=== PATIENT | male | born 1950 | race Caucasian/White ===

== ENCOUNTER → 2023-10-14 06:32 | Day surgery (SDC) | payer OTHER, SELFPAY ==
[2023-10-14 08:34] LABS: Glucose - Point of Care 122 mg/dl (70-99)
== END ==
LOC: GI 06:32
PROVIDERS: ATTENDING PHYSICIAN Specialist
DX: Z12.11 Encounter for screening for malignant neoplasm of colon (principal); D12.5 Benign neoplasm of sigmoid colon; Z86.010 Personal history of colon polyps
CPT/HCPCS: 45385; 88305; 82962

== ENCOUNTER → 2024-05-18 13:44 | Outpatient (REF) | payer OTHER, SELFPAY | LOC: HWRAD 13:44 | PROVIDERS: ATTENDING PHYSICIAN Specialist; FAMILY PHYSICIAN Family Medicine | DX: N18.4 Chronic kidney disease, stage 4 (severe) (principal); R80.1 Persistent proteinuria, unspecified; E11.9 Type 2 diabetes mellitus without complications; N25.81 Secondary hyperparathyroidism of renal origin | CPT/HCPCS: 76770 ==

== ENCOUNTER 2024-08-21 13:17 | Emergency (ER) | payer OTHER, SELFPAY ==
[2024-08-21 13:21] VITALS: BP 180/78
[2024-08-21] MEDS: NORCO 5/325 1 TABLET PO (14:20)
[2024-08-21] MEDS: MORPHINE SULFATE 4 MG IM (15:39)
--- NOTE | 2024-08-21 17:02 | ED.GENMED ---
History of Present Illness
General
Chief Complaint: Musculo-Skeletal Complaint
Time Seen by Provider: 08/21/24 13:43
History of Present Illness
History of Present Illness:
74-year-old male presents for evaluation of left knee pain after a mechanical fall, states he tripped over a shop vac hose. Did not strike his head. He has not been able to bear weight due to pain
Past History
Past History
ED Past Medical History: CAD, Cancer (Colon CA., Skin cancer), HTN, Hypercholesterolemia, IDDM, [place] and Other (Lymphoma, Gout, Hiatel hernia, Esophageal tear, Kidney stone)
ED Past Surgical History: Bowel resection (for diverticulitis with Colostomy and then reversal 2006) and Cardiac (Stent)
Social History
Tobacco: Non-smoker
Alcohol: None
Drug: None
Personal:
Living: with family
Employment: Employed
Family History
Family History: Diabetes
Review of Systems
Review of Systems
Allergies reviewed?: Yes
All Other Systems: ROS reviewed and negative except as documented in HPI and ROS
Phy Exam
Physical Exam
Physical Exam:
GEN: Well appearing, NAD, WDWN
HEENT: Oral mucosa moist, no scleral icterus
Cardiac: Regular rate
Lung: No respiratory distress, no tachypnea
MSK: Diffuse swelling to the anterior left knee, no open wounds, range of motion limited by pain however fully intact when patient able to tolerate pain
Skin: Good color, no pallor or jaundice, no rashes
Neuro: AO x3, moves all extremities freely
Psych: Calm, cooperative
Course
Orders/Labs/Results
Orders:
Orders
08/21/24 13:24
CR Knee - Left 4 Or More View* Urgent
Comment:
Reason For Exam: fall, pain
08/21/24 14:14
Hydrocodone 5/APAP 325 [[place] 5/325] 1 tablet PO NOW STA
08/21/24 15:16
Morphine Sulfate 4 mg IM NOW STA
Vital Signs
Initial and Last Documented VS:
Initial Vital Signs
Temp Pulse Resp BP Pulse Ox
97.9 F 61 18 180/78 98
08/21/24 13:21 08/21/24 13:21 08/21/24 13:21 08/21/24 13:21 08/21/24 13:21
Last Documented Vital Signs
Temp Pulse Resp BP Pulse Ox
97.9 F 61 18 180/78 98
08/21/24 13:21 08/21/24 13:21 08/21/24 13:21 08/21/24 13:21 08/21/24 13:21
MDM/Problems Addressed
MDM/Problems Addressed:
X-rays unremarkable, given analgesics and ambulated, he is able to manage with support. Recommend outpatient orthopedic follow-up and supportive care discussed
*Critical Care Note
Total Time (30-74mins, 75-104mins- exclusive of procedures): Not Applicable
ED Attending Note
-
Portions of this chart may have been created with voice recognition software.� Occasional wrong word or��sound alike� substitutions may have occurred due to the inherent limitations of voice recognition software.
Discharge Plan
Departure
Patient Disposition: Home (Routine Discharge)
Date of Disposition: 08/21/24
Time of Disposition: 17:03
Patient with high blood pressure during this ER visit?: No
Discharge Problem:
Contusion of left knee
Instructions: Contusion (DC)
Prescriptions:
New
oxycodone 5 mg tablet
5 mg PO TID PRN (Reason: Pain) Qty: 12 0RF
No Action
sertraline 100 MG tablet
100 mg PO BID
aspirin 81 MG tablet,delayed release (DR/EC)
81 mg PO HS
pantoprazole 40 MG tablet,delayed release (DR/EC)
40 mg PO DAILY Qty: 30 11RF
insulin glargine [Lantus Solostar U-100 Insulin] 300 UNITS/3 ML insulin pen
20 units SC BID
colchicine 0.6 MG tablet
0.6 - 1.2 mg PO BIDPRN PRN (Reason: gout)
carvedilol 12.5 MG tablet
12.5 mg PO BID
pravastatin 40 MG tablet
80 mg PO DAILY
hydralazine 25 MG tablet
25 mg PO BID
allopurinol 100 mg Tablet
100 mg PO DAILY
furosemide 20 mg Tablet
20 mg PO DAILY
magnesium oxide 400 mg magnesium Capsule
400 mg PO .EVERYOTHERDAY
doxycycline hyclate 100 mg capsule
100 mg PO BID Qty: 28 0RF
Referrals:
Malik Franklin DO [Family Provider] -
Simba Gudino MD [Active] -
Interventions
Interventions:
*Risk Screen - Suicide Last Done: 08/21/24 13:21
*General Assessment Last Done: 08/21/24 13:21
*Neglect/Abuse Screening Last Done: 08/21/24 13:21
*ED COVID-19 Vaccine History Last Done: 08/21/24 13:21
*Nursing Disposition Last Done: 08/21/24 17:24
ED-Musculoskeletal Assessment Last Done: 08/21/24 13:42
Discharge Date and Time
Discharge Date/Time: 08/21/24 17:24
Print Language: DANISH
== END 2024-08-21 17:24 | disposition home or self-care (01) ==
LOC: EMR 13:17
PROVIDERS: EMERGENCY PHYSICIAN Emergency Medicine; FAMILY PHYSICIAN Family Medicine
DX: S80.02XA Contusion of left knee, initial encounter (principal); W18.09XA Striking against other object with subsequent fall, initial encounter; I25.10 Atherosclerotic heart disease of native coronary artery without angina pectoris; I10 Essential (primary) hypertension; E78.00 Pure hypercholesterolemia, unspecified; E11.9 Type 2 diabetes mellitus without complications; I25.2 Old myocardial infarction; Z85.038 Personal history of other malignant neoplasm of large intestine; Z85.828 Personal history of other malignant neoplasm of skin; Z79.4 Long term (current) use of insulin; Z95.5 Presence of coronary angioplasty implant and graft
CPT/HCPCS: 99284; 96372; 73564

== ENCOUNTER 2024-12-12 08:09 | Outpatient (REF) | payer OTHER, SELFPAY ==
[2024-12-12] VITALS (12 sets, daily range): BP systolic 55–181; BP diastolic 68–90
[2024-12-12 08:36] LABS: % Basophils 0.9 % (0-2); % Eosinophils 9.4 % (0-6); % Immature Granulocytes 0.3 % (0-0.5); % Monocytes 5.7 % (1.7-9.3); % Neutrophils 67.7 % (42.2-75.2); Absolute Basophils 0.1 10^3/uL (0-0.2); Absolute Eosinophils 0.5 10^3/uL (0-0.7); Absolute Lymphocytes 0.9 10^3/uL (1.2-3.4); Absolute Monocytes 0.3 10^3/uL (0.1-0.6); Absolute Neutrophils 3.9 10^3/uL (1.4-6.5); Hematocrit 30.2 % (39.0-52.0); Hemoglobin 10.5 g/dL (13.0-18.0); Mean Corp Hgb Conc. 34.8 g/dL (33.0-37.0); Mean Corpuscular Hgb 33.9 pg (27.0-31.0); Mean Corpuscular Volume 97.4 fL (80.0-94.0); Mean Platelet Volume 9.8 fL (7.4-10.4); Nucleated Red Blood Cells % 0 % (-); Platelet Count 103 10^3/uL (130-400); Red Cell Dist. Width 13.3 % (11.5-14.5); White Blood Cell Count 5.8 10^3/uL (4.8-10.8)
[2024-12-12 08:45] LABS: PT 12.5 Sec (11.4-14.6)
[2024-12-12 08:51] LABS: Blood Urea Nitrogen 48 mg/dl (9-20); Calcium 9.3 mg/dl (8.4-10.2); Carbon Dioxide 23 mmol/L (22-30); Chloride 113 mmol/L (98-107); Glucose 158 mg/dl (70-99); Potassium 4.5 mmol/L (3.5-5.1); Sodium 143 mmol/L (135-145); eGFR 17.78
[2024-12-12] MEDS: APRESOLINE 5 MG IV (09:10)
[2024-12-12 15:05] LABS: Hemoglobin 10.6 g/dL (13.0-18.0)
== END 2024-12-12 15:40 | disposition home or self-care (01) ==
LOC: RADI 08:09
PROVIDERS: Radiology Vascular & Interventional Radiology; ATTENDING PHYSICIAN Specialist; FAMILY PHYSICIAN Physician Assistant
DX: I12.9 Hypertensive chronic kidney disease with stage 1 through stage 4 chronic kidney disease, or unspecified chronic kidney disease (principal); N18.4 Chronic kidney disease, stage 4 (severe); E11.22 Type 2 diabetes mellitus with diabetic chronic kidney disease
CPT/HCPCS: 36415; 50200; 76942; 80048; 85014; 85018; 85025; 85610; 88305; 99152; 99153

== ENCOUNTER → 2025-01-25 15:46 | Outpatient (REF) | payer OTHER, SELFPAY ==
--- NOTE | 2025-01-25 17:08 | CARDSERVLU ---
Echocardiogram with [facility] completed after protocol screening completed. Allergies verified.
Patent IV site: ___RIGHT ARM__
IV site flushed with 0.9% NaCl pre and post administration.
Diluted bolus method utilized to enhance visualization of ventricular govea.
Total volume given: ___3_ mL
Patient tolerated all procedures well without complications.
== END ==
LOC: RCS 15:46
PROVIDERS: ATTENDING PHYSICIAN Internal Medicine Cardiovascular Disease; FAMILY PHYSICIAN Family Medicine
DX: I25.5 Ischemic cardiomyopathy (principal); I50.22 Chronic systolic (congestive) heart failure
CPT/HCPCS: 93306; Q9950

== ENCOUNTER 2025-05-03 11:45 | Emergency (ER) | payer OTHER, SELFPAY ==
[2025-05-03 11:48] VITALS: BP 154/81
--- NOTE | 2025-05-03 13:25 | ED.GENMED ---
History of Present Illness
General
Chief Complaint: DVT/Possible Blood Clot
Time Seen by Provider: 05/03/25 12:05
History of Present Illness
History of Present Illness:
74-year-old male presents to the emergency department for ration of right leg swelling and spontaneous ecchymosis over the past 2 to 3 days. He also noticed swollen area to the right lateral bellamy. He is able to ambulate without severe discomfort.
Denies any known injuries. No fevers or chills
Past History
Past History
ED Past Medical History: CAD, Cancer (Colon CA., Skin cancer), HTN, Hypercholesterolemia, IDDM, [place] and Other (Lymphoma, Gout, Hiatel hernia, Esophageal tear, Kidney stone)
ED Past Surgical History: Bowel resection (for diverticulitis with Colostomy and then reversal 2006) and Cardiac (Stent)
Social History
Tobacco: Non-smoker
Alcohol: None
Drug: None
Personal:
Living: with family
Employment: Employed
Family History
Family History: Diabetes
Review of Systems
Review of Systems
Allergies reviewed?: Yes
All Other Systems: ROS reviewed and negative except as documented in HPI and ROS
Phy Exam
Physical Exam
Physical Exam:
GEN: Well appearing, NAD, WDWN
HEENT: Oral mucosa moist, no scleral icterus
Cardiac: Regular rate
Lung: No respiratory distress, no tachypnea
MSK: Diffuse edema of the right lower extremity with ecchymosis to the inferior right heel and midfoot as well as the base of the third metatarsal. There is a nodular density to the right lateral mid bellamy that is nontender to palpation, no
popliteal fullness. Dorsalis pedis and posterior tibialis pulses are strong
Skin: Good color, no pallor or jaundice, no rashes
Neuro: AO x3, moves all extremities freely
Psych: Calm, cooperative
Course
Orders/Labs/Results
Orders:
Orders
05/03/25 12:00
US Periph Venous LOWER Ext RT Urgent
Comment:
Reason For Exam: swelling
Vital Signs
Initial and Last Documented VS:
Initial Vital Signs
Temp Pulse Resp BP Pulse Ox
98 F 57 16 154/81 98
05/03/25 11:48 05/03/25 11:48 05/03/25 11:48 05/03/25 11:48 05/03/25 11:48
Last Documented Vital Signs
Temp Pulse Resp BP Pulse Ox
98 F 57 16 154/81 98
05/03/25 11:48 05/03/25 11:48 05/03/25 11:48 05/03/25 11:48 05/03/25 13:26
MDM/Problems Addressed
MDM/Problems Addressed:
Ultrasound shows no evidence for DVT, ultrasound appearance is most likely representing hematoma despite his lack of reported trauma particular given the localized ecchymosis. Recommend elevation and ice
*Pulse Oximetry
SaO2: 98
Oxygen Mode of Delivery: Room air
Patient hypoxic: no
*Critical Care Note
Total Time (30-74mins, 75-104mins- exclusive of procedures): Not Applicable
ED Attending Note
-
Portions of this chart may have been created with voice recognition software.� Occasional wrong word or��sound alike� substitutions may have occurred due to the inherent limitations of voice recognition software.
Discharge Plan
Departure
Patient Disposition: Home (Routine Discharge)
Date of Disposition: 05/03/25
Time of Disposition: 13:26
Patient with high blood pressure during this ER visit?: No
Discharge Problem:
Right leg swelling
Instructions: Swelling
Prescriptions:
No Action
sertraline 100 MG tablet
100 mg PO BID
aspirin 81 MG tablet,delayed release (DR/EC)
81 mg PO HS
pantoprazole 40 MG tablet,delayed release (DR/EC)
40 mg PO DAILY Qty: 30 11RF
insulin glargine [Lantus Solostar U-100 Insulin] 300 UNITS/3 ML insulin pen
20 units SC BID
colchicine 0.6 MG tablet
0.6 - 1.2 mg PO BIDPRN PRN (Reason: gout)
carvedilol 12.5 MG tablet
12.5 mg PO BID
pravastatin 40 MG tablet
80 mg PO DAILY
hydralazine 25 MG tablet
25 mg PO BID
allopurinol 100 mg Tablet
100 mg PO DAILY
furosemide 20 mg Tablet
20 mg PO DAILY
magnesium oxide 400 mg magnesium Capsule
400 mg PO .EVERYOTHERDAY
calcitriol 0.25 mcg Capsule
0.25 mcg PO DAILY
Referrals:
Malik Franklin DO [Family Provider, Family Practice]
Activity Restrictions/Additional Instructions:
Elevate legs often
Interventions
Interventions:
*Risk Screen - Suicide Last Done: 05/03/25 11:48
*General Assessment Last Done: 05/03/25 13:35
*Neglect/Abuse Screening Last Done: 05/03/25 11:48
*ED- Fall Risk Assessment Last Done: 05/03/25 13:35
*ED COVID-19 Vaccine History Last Done: 05/03/25 13:35
*ED Influenza Vaccine History Last Done: 05/03/25 13:35
*Nursing Disposition Last Done: 05/03/25 13:49
ED- Cardiac Assessment Last Done: 05/03/25 13:35
ED- Pulmonary Assessment Last Done: 05/03/25 13:35
ED-Peripheral Vascular Assessment Last Done: 05/03/25 13:35
ED-Skin Assessment Last Done: 05/03/25 13:35
Discharge Date and Time
Discharge Date/Time: 05/03/25 13:48
Print Language: [place]
== END 2025-05-03 13:48 | disposition home or self-care (01) ==
LOC: EMR 11:45
PROVIDERS: EMERGENCY PHYSICIAN Emergency Medicine; FAMILY PHYSICIAN Family Medicine
DX: R22.41 Localized swelling, mass and lump, right lower limb (principal); I10 Essential (primary) hypertension; E11.9 Type 2 diabetes mellitus without complications; E78.00 Pure hypercholesterolemia, unspecified; I25.10 Atherosclerotic heart disease of native coronary artery without angina pectoris; I25.2 Old myocardial infarction; Z85.72 Personal history of non-Hodgkin lymphomas; Z95.5 Presence of coronary angioplasty implant and graft
CPT/HCPCS: 99284; 93971